=== PATIENT | female | born 1980 | race Caucasian/White ===

== ENCOUNTER 2024-02-21 13:48 | Day surgery (SDC) | payer SELFPAY ==
[2024-02-21] VITALS (10 sets, daily range): BP systolic 107–132; BP diastolic 58–82; BMI 29.9; BMI 29.2
--- NOTE | 2024-02-21 08:42 | ED.GENMED ---
History of Present Illness
General
Chief Complaint: Abdominal Symptoms
Source: patient
Time Seen by Provider: 02/21/24 08:30
Travel History
Have you had any contact with someone who has COVID-19?: No
Do you have any symptoms of coronavirus? Fever > 100 degrees, chills, cough, shortness of breath, sore throat, loss of taste or smell, muscle aches, or headache?: No
History of Present Illness
History of Present Illness:
43-year-old female presents emergency department with her daughter with complaints of pain that started at around 1:30 AM. She felt perfectly well when she went to bed. She had tacos for dinner. She describes the pain as across the upper abdomen
located 'under my boobs', associated with repeated episodes of nonbloody vomiting. She has not vomited since 4 AM but continues to experience waves of nausea. Gradually the pain localized to the right upper quadrant area creating difficulty
sleeping. She describes the pain is constant with exacerbations that are unpredictable. She denies radiation, exacerbating, relieving factors. Patient had a loose stool x 1 on Wednesday, no blood or black stool. She denies urinary urgency, dysuria
but does note mild Rell. She denies fever, chest pain, dyspnea, leg swelling, recent immobilization, recent trauma. Patient denies vaginal bleeding or discharge.
Past History
Past History
ED Past Medical History: None
ED Past Surgical History: None
Social History
Tobacco: Non-smoker
Drug: None
Personal: Single
Employment: Employed
Phy Exam
Physical Exam
Physical Exam:
GENERAL: Alert , in no apparent distress
EYE: pupils equal and reactive
NECK: Supple, no significant adenopathy.
ENT: o/p clr, mmm.
CARDIAC: Regular rate and rhythm .
LUNGS: Clear breath sounds bilaterally, no acute respiratory distress, no wheezes/rales/rhonchi
ABDOMEN: Soft, mild right upper quadrant greater than right mid and lower quadrant tenderness, no r/g, no cvat
NEUROLOGICAL: Alert and oriented, no focal neuro deficits
SKIN: Warm and dry, skin intact.
MUSCULOSKELETAL: No edema, well perfused.
PSYCH: Normal and appropriate interaction.
Course
Orders/Labs/Results
Orders:
Orders
02/21/24 08:42
Electrocardiogram (*1) Urgent
Reason for Study: Abdominal Pain
Cardiac Monitoring- Treatment ONCE
EKG- Treatment ONCE
Ketorolac [Toradol] 15 mg IV NOW STA
Ondansetron Injectable [Zofran] 4 mg IV NOW STA
Test Result ONCE
US Abdomen Complete/Upper Urgent
Comment:
Reason For Exam: ruq pain
02/21/24 08:44
Complete Blood Count/No Diff Urgent
Comprehensive Metabolic Panel Urgent
HCG, Serum Qualitative Screen Urgent
Lipase Urgent
02/21/24 08:50
Urinalysis Reflex To Culture Urgent
Date Specimen was Collected: 02/21/24
Time Specimen was Collected: 08:45
Urine Microscopic Reflex Cult Urgent
02/21/24 11:52
Case Management Consult ONCE
Case Management Consult: Other
02/21/24 12:01
Zosyn 3.375 grams IVPB NOW Piperacillin/Tazo 3.375 Gram [Zosyn] 3.375 gram in 50 ml IV NOW
Abnormal Lab Results
02/21/24 02/21/24
08:44 08:50
WBC 14.1 H 10^3/uL
(4.8-10.8)
MCH 32.0 H pg
(27.0-31.0)
MPV 11.4 H fL
(7.4-10.4)
Glucose 138 H mg/dl
(70-99)
Urine Ketones 3+ A
(Negative)
Ur Occult Blood Reflex 4+ A
(Negative)
Urine Bilirubin 1+ A
(Negative)
Leukocyte Esterase Rfl Trace A
(Negative)
Urine RBC 30-40 A /HPF
(0-2)
Urine Bacteria (Reflex) Few A
(Negative)
02/21/24 08:44
02/21/24 08:44
Vital Signs
Initial and Last Documented VS:
Initial Vital Signs
Temp Pulse BP Pulse Ox
98.1 F 73 110/69 100
02/21/24 07:46 02/21/24 07:46 02/21/24 07:46 02/21/24 07:46
Last Documented Vital Signs
Temp Pulse BP Pulse Ox
98.1 F 73 119/79 97
02/21/24 07:46 02/21/24 07:46 02/21/24 10:00 02/21/24 10:00
*Critical Care Note
Total Time (30-74mins, 75-104mins- exclusive of procedures): Not Applicable
Update Note
Update Note:
Patient presents to the Emergency Department with __abdominal pain nausea vomit
Number and Complexity of Problems Addressed at the Encounter
� Chronic conditions affecting care:
� Acute Exacerbation and/or Progression of Chronic Illness:
� Differential Diagnosis includes: But not limited to pancreatitis, Ama lithiasis, cholecystitis, appendicitis, kidney stone, etc. etc.
Amount and/or Complexity of Data to be Reviewed and Analyzed
� I performed an independent evaluation of and my interpretation is:
EKG: Read by me, no acute ischemia, normal sinus rhythm
CT:
Xrays:
Laboratory Studies: LFTs unremarkable, white blood cell count elevation at 14
Other: UltrasoundBorderline prominent gallbladder containing sludge and tiny stones without wall thickening or pericholecystic fluid. Evaluation for sonographic Schreiber's sign limited by administered pain medication. No biliary
tract dilatation.
� Review of other/old records reveals:
� Clinical information was obtained by an independent historian:
� Prescriptions/Medications Considered but not given:
� Further testing considered but not performed:
Risk of Complications and/or Morbidity or Mortality of Patient Management
� Social determinants of health affecting care:
� Discussion with other providers (PCP, Hospitalists, Consultants, etc):
� Escalation of care including admission/observation vs risk of discharge considered: 11:10 AM patient still with pain 6 out of 10, declines any further pain medications here. Concern regarding a CBC, text sent to general
surgery Dr. Hanson for consultation.
Patient seen by Dr. Hanson, agreement regarding my concerns patient will be admitted with plans for OR tomorrow. Patient describes a gap in her insurance and I have consulted case management as result. IV Zosyn started.
ED Attending Note
-
Portions of this chart may have been created with voice recognition software.� Occasional wrong word or��sound alike� substitutions may have occurred due to the inherent limitations of voice recognition software.
Discharge Plan
Departure
Patient Disposition: Admit
Date of Disposition: 02/21/24
Time of Disposition: 12:02
Admit to: Med/Surg
Admit to doctor: ROSA
Presentation/result/management discussed w/ accepting MD/DO: ROSA
Condition: Good
Discharge Problem:
Acute cholecystitis
Referrals:
Brianna Francis PA-C [Family Provider] -
Interventions
Interventions:
*Risk Screen - Suicide Last Done: 02/21/24 08:50
*General Assessment Last Done: 02/21/24 08:52
*Neglect/Abuse Screening Last Done: 02/21/24 08:50
*ED COVID-19 Vaccine History Last Done: 02/21/24 07:47
HV-Hfowmb-Qtzoeceppf Assessment Last Done: 02/21/24 08:49
Discharge Date and Time
Print Language: SINHALA
[2024-02-21] MEDS: TORADOL 15 MG IV (09:01)
[2024-02-21] MEDS: ZOFRAN 4 MG IV (09:01)
[2024-02-21 09:08] LABS: Hematocrit 40.1 % (37.0-47.0); Hemoglobin 13.9 g/dL (12.0-16.0); Mean Corp Hgb Conc. 34.7 g/dL (33.0-37.0); Mean Corpuscular Volume 92.4 fL (81.0-99.0); Mean Platelet Volume 11.4 fL (7.4-10.4); Platelet Count 188 10^3/uL (130-400); Red Blood Cell Count 4.34 10^6/uL (4.20-5.40); Red Cell Dist. Width 11.7 % (11.5-14.5); White Blood Cell Count 14.1 10^3/uL (4.8-10.8)
[2024-02-21 09:20] LABS: Urine Albumin Trace (Neg - Trace); Urine Bilirubin 1+ (Negative); Urine Character Clear (Clear); Urine Glucose Negative (Negative); Urine Ketone 3+ (Negative); Urine Leukocyte Trace (Negative); Urine Nitrite Negative (Negative); Urine Occult Blood 4+ (Negative); Urine Urobilinogen 1+ (Neg - 1+)
[2024-02-21 09:23] LABS: HCG, Serum Qualitative Screen Negative
[2024-02-21 09:25] LABS: ALT (SGPT) 19 U/L (0-35); AST (SGOT) 26 U/L (14-36); Albumin 4.3 g/dl (3.5-5.0); Alkaline Phosphatase 60 U/L (38-126); Blood Urea Nitrogen 13 mg/dl (7-17); Calcium 9.3 mg/dl (8.4-10.2); Carbon Dioxide 26 mmol/L (22-30); Chloride 104 mmol/L (98-107); Estimated Creatinine Clearance > 125 ml/min; Glucose 138 mg/dl (70-99); Lipase 114 U/L (23-300); Sodium 136 mmol/L (135-145); Total Bilirubin 0.6 mg/dl (0.2-1.3); eGFR > 60.00
[2024-02-21 09:38] LABS: Urine Color Yellow
[2024-02-21 09:50] LABS: Urine Mucus Moderate; Urine Squamous Cell 16-20 /LPF (Few)
[2024-02-21 09:52] LABS: Urine Amorphous Seen
[2024-02-21 09:53] LABS: Urine Red Blood Cell 30-40 /HPF (0-2)
[2024-02-21 09:54] LABS: Urine Bacteria Few (Negative); Urine White Cell 0-2 /HPF (0-5)
--- NOTE | 2024-02-21 12:03 | HPS.HSE ---
Family Physician
-
Family Physician: Brianna Francis PA-C
Chief Complaint
-
Right upper quadrant pain
History of Present Illness
This is a 43-year-old female who presents with right upper quadrant pain that began roughly a 1 AM earlier today. She did have an episode of nonbloody nonbilious emesis around 4 AM and continued to have nausea as well as pain which prompted her to
visit our ER. Here she was tender to palpation in the right upper quadrant. Lab work was significant for a leukocytosis. LFTs were normal limits. Ultrasound demonstrated a thickened gallbladder with sludge and tiny stones as well as wall
thickening and pericholecystic fluid. The patient denies Fever, Chest Pain, Shortness Of Breath, Nausea, Vomiting, changes in urinary and bowel habits, unintentional weight loss, jaundice, icterus, acolic stools.
Medical History
Past Medical History
Past Medical History: Reports None
Past Surgical History: Reports None
Social History
Tobacco: Non-smoker
Alcohol: None
Drug: None
Family History
Family History: Not pertinent
Allergies / Home Medications
Allergies reflects when Allergies were last updated in [facility].
Home Medications with original date entered in [employer]
Allergy/Medication List:
None
Review of Systems
-
A 12 point ROS was completed and negative except as noted: Yes
Physical Exam
Vital Signs
Vital Signs
Temp Pulse BP Pulse Ox
98.1 F 73 119/79 97
02/21/24 07:46 02/21/24 07:46 02/21/24 10:00 02/21/24 10:00
Physical Exam
General: Well Developed
Respiratory: Non Labored Respirations
GI: Soft, Non Distended (Tender to palpation in the right upper quadrant. No Schreiber sign.) and Tender
Laboratory Results
-
02/21/24 08:44
02/21/24 08:44
Laboratory Results
Total Bilirubin 0.6 mg/dl (0.2-1.3) 02/21/24 08:44
AST 26 U/L (14-36) 02/21/24 08:44
ALT 19 U/L (0-35) 02/21/24 08:44
Alkaline Phosphatase 60 U/L (38-126) 02/21/24 08:44
Lipase 114 U/L (23-300) 02/21/24 08:44
Data Reviewed
-
Ultrasound: Image Personally Visualized and interpreted, Report Reviewed by me, Discussed with Physician and Discussed with Patient
Lab Data: Labs Reviewed by me, Discussed with Physician and Discussed with Patient
Impression/Plan
-
This is a 43-year-old female who presents with a 1 day history of sustained right upper quadrant pain. Exam, lab work, imaging all consistent with early acute cholecystitis.
Will plan for a laparoscopic cholecystectomy and cholangiogram. Given or schedule, will likely not go until tomorrow.
Admit for observation
Start antibiotics
Okay for sips of clears
Risks/Benefits/Alternatives, expected postoperative course and possible complications (bleeding, infection, injury to surrounding structures, acute/chronic pain) discussed at length. Patient wishes to proceed with surgery. All questions answered.
Written consent not obtained.
I spent roughly 60 minutes in total for the care of this patient today including direct patient care and counseling, reviewing labs, imaging, coordination of care, as well as documentation.
[2024-02-21] MEDS: ZOSYN 50 IV ×2 (12:21→17:31)
[2024-02-21] MEDS: NORMOSOL-R 1000 IV (15:30)
[2024-02-21] MEDS: TORADOL 10 MG IV ×2 (15:30→19:57)
--- NOTE | 2024-02-21 16:10 | PTCARENOTE ---
Received patient from ED via stretcher. AAOx3, ambulated to bed without assistance. Abdominal tenderness is 4/10- tolerable for patient. Assessed and oriented to room. Call huerta in close reach.
[2024-02-22] VITALS (13 sets, daily range): BP systolic 95–132; BP diastolic 57–76
[2024-02-22] MEDS: ZOSYN 50 IV ×5 (01:21→23:02)
[2024-02-22] MEDS: TORADOL 10 MG IV ×2 (01:22→08:01)
[2024-02-22] MEDS: NORMOSOL-R 1000 IV ×2 (04:19→21:46)
[2024-02-22 04:36] LABS: % Basophils 0.5 % (0-2); % Eosinophils 1.1 % (0-6); % Immature Granulocytes 0.3 % (0-0.5); % Lymphocytes 22.2 % (20.5-51.1); % Monocytes 9.1 % (1.7-9.3); % Neutrophils 66.8 % (42.2-75.2); Absolute Eosinophils 0.1 10^3/uL (0-0.7); Absolute Lymphocytes 1.8 10^3/uL (1.2-3.4); Absolute Monocytes 0.7 10^3/uL (0.1-0.6); Absolute Neutrophils 5.3 10^3/uL (1.4-6.5); Hematocrit 39.7 % (37.0-47.0); Hemoglobin 13.6 g/dL (12.0-16.0); Mean Corp Hgb Conc. 34.3 g/dL (33.0-37.0); Mean Corpuscular Hgb 31.8 pg (27.0-31.0); Mean Corpuscular Volume 92.8 fL (81.0-99.0); Mean Platelet Volume 11.3 fL (7.4-10.4); Nucleated Red Blood Cells % 0 %; Platelet Count 178 10^3/uL (130-400); Red Blood Cell Count 4.28 10^6/uL (4.20-5.40); Red Cell Dist. Width 11.9 % (11.5-14.5); White Blood Cell Count 7.9 10^3/uL (4.8-10.8)
[2024-02-22 05:25] LABS: ALT (SGPT) 17 U/L (0-35); AST (SGOT) 24 U/L (14-36); Albumin 3.7 g/dl (3.5-5.0); Alkaline Phosphatase 48 U/L (38-126); Blood Urea Nitrogen 10 mg/dl (7-17); Calcium 8.7 mg/dl (8.4-10.2); Carbon Dioxide 29 mmol/L (22-30); Chloride 103 mmol/L (98-107); Estimated Creatinine Clearance 102 ml/min; Glucose 106 mg/dl (70-99); Potassium 3.4 mmol/L (3.5-5.1); Sodium 139 mmol/L (135-145); Total Bilirubin 1.4 mg/dl (0.2-1.3); Total Protein 6.3 g/dl (6.3-8.2); eGFR > 60.00
--- NOTE | 2024-02-22 08:22 | W.PN.GS2 ---
Today's Communication / Plan
-
-- Laparoscopic cholecystectomy with IOC
Assessment / Plan
-
Patient is a 43 yo F p/w acute cholecystitis versus severe attack of biliary colic
The natural history and pathophysiology of biliary and stone disease was discussed. Anatomy was reviewed. Options for management including medical management with a low-fat diet versus surgical management with cholecystectomy were considered and
discussed. The pros and cons of both approaches was discussed. Specifically, we discussed persistent and future attacks versus surgical risks. Patient would like to proceed with cholecystectomy.
Plan for a laparoscopic cholecystectomy with possible cholangiogram. The procedure itself, as well as the risks, benefits, and alternatives was discussed. Specifically, we discussed the risks of bleeding, infection, injury to surrounding
structures (bowel, bile ducts), CBD injury, need for open procedure. Typical postprocedural recovery was discussed. All questions answered. Consent signed.
-- Laparoscopic cholecystectomy with IOC
-- NPO, IVF
-- Antibiotics: Zosyn
Subjective Data
-
Date of Service: February 22, 2024
Pain improved, but not completely resolved. No nausea or vomiting. No fevers or chills. No jaundice, pale stools, or tea colored urine. Denies any prior attacks.
Objective Data
-
Intake and Output
02/21/24 02/22/24 02/23/24
06:59 06:59 06:59
Intake Total 120 / 120
Balance 120 / 120
Intake:
Oral fluids 120 / 120
Other:
Number of approximated MODERATE 2
amounts of urine
Vital Signs
Temp Pulse Resp BP Pulse Ox
98.8 F 89 18 120/70 97
02/22/24 08:03 02/22/24 08:03 02/22/24 08:03 02/22/24 08:03 02/22/24 08:03
Lab Results
02/22/24 04:23
02/22/24 04:23
Calcium 8.7 mg/dl (8.4-10.2) 02/22/24 04:23
Total Bilirubin 1.4 mg/dl (0.2-1.3) H 02/22/24 04:23
AST 24 U/L (14-36) 02/22/24 04:23
ALT 17 U/L (0-35) 02/22/24 04:23
Alkaline Phosphatase 48 U/L (38-126) 02/22/24 04:23
Total Protein 6.3 g/dl (6.3-8.2) 02/22/24 04:23
Albumin 3.7 g/dl (3.5-5.0) 02/22/24 04:23
Physical Exam
-
Gen: NAD
Abd: soft, mild tenderness in RUQ, non-distended, non-peritoneal
--- NOTE | 2024-02-22 08:25 | W.SUR.PREOP ---
Pre-Operative Surgical Note
-
I have examined this patient prior to the performance of the scheduled procedure.
The patient's condition is unchanged from the time of the current History and
Physical and the patient is able to undergo the scheduled procedure.
--- NOTE | 2024-02-22 09:41 | CM ---
Consult received; Evelia is in the OR this am for jalyn durant. Assessment to be completed when she returns to the unit.
--- NOTE | 2024-02-22 10:41 | CM ---
CM consult to be completed after jalyn durant today. Evelia is currently uninsured, having a gap in coverage. CM to follow to refer to [facility] after speaking with Evelia.
--- NOTE | 2024-02-22 11:32 | W.IMMPOSTOP ---
Addendum entered and electronically signed by Jayme Leslie MD 02/22/24 11:43:
Dic#[id number]
Original Note:
Surgical Immed Post Op Note
-
Primary Surgeon: Mariama
Assisting Surgeon: None
Pre-op Diagnosis: Acute cholecystitis
Post-op Diagnosis: Acute cholecystitis
Procedure Performed: Laparoscopic cholecystectomy with IOC
Anesthesia Type: General
Specimen / Cultures:
1. Gallbladder
Estimated Blood Loss: 3 cc
Complications: None
Operative Findings:
1. Gangrenous and necrotic GB, bilious ascites, decompression needle
2. Critical view of safety
3. IOC without filling defects, small stones cleared from cystic duct
--- NOTE | 2024-02-22 14:14 | CM ---
Addendum entered by Sana Valera 02/22/24 14:20:
Evelia will return home with spouse and in-laws. She will follow up with [facility] as needed for resumption of medical assistance benefits.
Original Note:
Ana had a copy of her insurance card ([employer]) which she provided to me. I was able to share the information with Nicole with [facility] who will meet with Evelia to determine if she meets the criteria for Medical Assistance. Evelia advised
of same and is hoping to meet Nicole today.
[2024-02-22] MEDS: LOVENOX 40 MG SC (17:14)
[2024-02-23 03:48] VITALS: BP 124/71
[2024-02-23] MEDS: ZOSYN 50 IV (05:30)
[2024-02-23 07:16] LABS: % Basophils 0.5 % (0-2); % Eosinophils 0.5 % (0-6); % Immature Granulocytes 0.4 % (0-0.5); % Lymphocytes 20.8 % (20.5-51.1); % Monocytes 7.4 % (1.7-9.3); % Neutrophils 70.4 % (42.2-75.2); Absolute Lymphocytes 1.6 10^3/uL (1.2-3.4); Absolute Monocytes 0.6 10^3/uL (0.1-0.6); Absolute Neutrophils 5.5 10^3/uL (1.4-6.5); Hematocrit 34.8 % (37.0-47.0); Hemoglobin 12.1 g/dL (12.0-16.0); Mean Corp Hgb Conc. 34.8 g/dL (33.0-37.0); Mean Corpuscular Hgb 31.8 pg (27.0-31.0); Mean Corpuscular Volume 91.6 fL (81.0-99.0); Mean Platelet Volume 11.7 fL (7.4-10.4); Nucleated Red Blood Cells % 0 %; Platelet Count 170 10^3/uL (130-400); Red Cell Dist. Width 11.9 % (11.5-14.5); White Blood Cell Count 7.8 10^3/uL (4.8-10.8)
--- NOTE | 2024-02-23 07:20 | W.PN.GS2 ---
Today's Communication / Plan
-
-- Low fat diet
-- HLIV
-- Zosyn, Augmentin on DC
-- DC today
Assessment / Plan
-
Patient is a 43 yo F p/w acute cholecystitis versus severe attack of biliary colic
POD#1 s/p laparoscopic cholecystectomy with IOC
Recovering well. No postoperative concerns. Stable for discharge. Will plan on 4 days of antibiotics given the gangrenous and necrotic nature of the gallbladder.
-- Low fat diet
-- Pain control: Tylenol, Toradol, Oxycodone
-- HLIV
-- Zosyn, Augmentin on DC
-- Lovenox for DVT
-- DC today
Subjective Data
-
Date of Service: February 23, 2024
Imaging complaints. Pain well-controlled. No nausea or vomiting. No fevers or chills.
Objective Data
-
Intake and Output
02/22/24 02/23/24 02/24/24
06:59 06:59 06:59
Intake Total 120 / 120 2500 / 2500
Balance 120 / 120 2500 / 2500
Intake:
Oral fluids 120 / 120 2400 / 2400
IV piggybacks 100 / 100
Other:
Number of approximated MODERATE 2 3
amounts of urine
Vital Signs
Temp Pulse Resp BP Pulse Ox
98.9 F 75 18 124/71 98
02/23/24 03:48 02/23/24 03:48 02/23/24 03:48 02/23/24 03:48 02/23/24 03:48
Lab Results
02/23/24 06:38
Calcium 8.7 mg/dl (8.4-10.2) 02/22/24 04:23
Total Bilirubin 1.4 mg/dl (0.2-1.3) H 02/22/24 04:23
AST 24 U/L (14-36) 02/22/24 04:23
ALT 17 U/L (0-35) 02/22/24 04:23
Alkaline Phosphatase 48 U/L (38-126) 02/22/24 04:23
Total Protein 6.3 g/dl (6.3-8.2) 02/22/24 04:23
Albumin 3.7 g/dl (3.5-5.0) 02/22/24 04:23
Physical Exam
-
Gen: NAD
Abd: soft, NT/ND, non-peritoneal
--- NOTE | 2024-02-23 07:23 | W.DS.TRANS ---
DC Summary - Boiler Blower
-
Discharge Instructions:
Discharge Diagnosis/Procedures Laparoscopic cholecystectomy with IntraOp
cholangiogram
Diet Low Fat,Regular
Additional Diets If issues with bloating or diarrhea follow a low
-fat diet
Activity No strenuous activity
Additional Activity No heavy lifting (>20 lbs) or strenuous
activities for 2 weeks postoperatively
Driving Restrictions No driving if to sore or taking narcotics
Bathing Restrictions OK to Shower
Wound Care Keep incisions clean and dry. Glue will flake
off in 2 to 3 weeks. Stitches will dissolve.
Instructions:
Stand-Alone Forms:
Changes to Home Medications: No
Discharge Medications:
DC Medications w/original date entered in [employer]
bsnaooa-nlxxnwaicdfai-gjwwexth 250 mg-250 mg-65 mg tablet (Excedrin Migraine) 1 tab PO DAILYPRN PRN headaches 02/21/24
levonorgestrel 0.15 mg-ethinyl estradiol 0.03 mg tablet (Altavera (28)) 1 tab PO HS Hormonal Agent 02/21/24
acetaminophen 325 mg tablet 650 mg (2 x 325 mg) PO Q4HPRN PRN mild pain #1 tab 02/22/24
amoxicillin 875 mg-potassium clavulanate 125 mg tablet 1 tab PO Q12 antibiotic 4 days #8 tabs 02/22/24
ibuprofen 200 mg tablet 400 - 600 mg (2 - 3 x 200 mg) PO Q6HPRN PRN moderate pain #1 tab 02/22/24
oxycodone 5 mg tablet 5 mg PO Q4HPRN PRN breakthrough/severe pain #10 tabs 02/22/24
Home Medication Changes
Pending Results: No
[2024-02-23 07:30] VITALS: BP 118/72
[2024-02-23 08:03] LABS: ALT (SGPT) 19 U/L (0-35); AST (SGOT) 26 U/L (14-36); Albumin 3.2 g/dl (3.5-5.0); Alkaline Phosphatase 49 U/L (38-126); Blood Urea Nitrogen 7 mg/dl (7-17); Calcium 8.2 mg/dl (8.4-10.2); Carbon Dioxide 27 mmol/L (22-30); Chloride 105 mmol/L (98-107); Estimated Creatinine Clearance 115 ml/min; Glucose 94 mg/dl (70-99); Sodium 138 mmol/L (135-145); Total Bilirubin 0.9 mg/dl (0.2-1.3); Total Protein 5.7 g/dl (6.3-8.2); eGFR > 60.00
--- NOTE | 2024-02-23 09:01 | CM ---
Addendum entered by Sana Valera 02/23/24 10:07:
I met with Evelia this AM and she is looking forward to returning home. She advised that she needs to send her daughter's SSI paperwork to Nicole for follow up, and is thankful for the assistance.
Original Note:
Radha is being discharged home this morning. Call placed to Nicole [facility] [phone] to advise of discharge in case follow up is needed regarding loss of insurance. PHILLIP left advising her of discharge today.
[2024-02-23 11:11] VITALS: BP 112/68
[2024-02-23] MEDS: KCL 40 MEQ PO (12:29)
[2024-02-23 13:52] LABS: Potassium 3.5 mmol/L (3.5-5.1)
== END 2024-02-23 14:24 | disposition home or self-care (01) ==
LOC: SDS 13:48
PROVIDERS: Surgery; ATTENDING PHYSICIAN Surgery; EMERGENCY PHYSICIAN Emergency Medicine; FAMILY PHYSICIAN Physician Assistant Medical
DX: K80.00 Calculus of gallbladder with acute cholecystitis without obstruction (principal); K82.A1 Gangrene of gallbladder in cholecystitis
CPT/HCPCS: 47563; 88304; 74300; 76000; 76700; 80053; 81003; 81015; 83690; 84132; 84703; 85025; 85027; 93005; 96374; 96375; 99285

== ENCOUNTER → 2024-03-02 16:56 | Outpatient (REF) | payer SELFPAY ==
[2024-03-02 17:30] LABS: % Basophils 0.5 % (0-2); % Eosinophils 1.6 % (0-6); % Immature Granulocytes 0.3 % (0-0.5); % Lymphocytes 26.6 % (20.5-51.1); % Monocytes 7.8 % (1.7-9.3); % Neutrophils 63.2 % (42.2-75.2); Absolute Eosinophils 0.1 10^3/uL (0-0.7); Absolute Lymphocytes 1.6 10^3/uL (1.2-3.4); Absolute Monocytes 0.5 10^3/uL (0.1-0.6); Absolute Neutrophils 3.9 10^3/uL (1.4-6.5); Hematocrit 40.5 % (37.0-47.0); Mean Corp Hgb Conc. 34.6 g/dL (33.0-37.0); Mean Corpuscular Hgb 31.8 pg (27.0-31.0); Mean Platelet Volume 11.3 fL (7.4-10.4); Nucleated Red Blood Cells % 0 %; Platelet Count 198 10^3/uL (130-400); Red Cell Dist. Width 11.9 % (11.5-14.5); White Blood Cell Count 6.2 10^3/uL (4.8-10.8)
[2024-03-02 17:48] LABS: ALT (SGPT) 39 U/L (0-35); AST (SGOT) 33 U/L (14-36); Albumin 4.4 g/dl (3.5-5.0); Alkaline Phosphatase 65 U/L (38-126); Blood Urea Nitrogen 8 mg/dl (7-17); Calcium 9.9 mg/dl (8.4-10.2); Carbon Dioxide 29 mmol/L (22-30); Chloride 101 mmol/L (98-107); Glucose 95 mg/dl (70-99); Potassium 4.1 mmol/L (3.5-5.1); Sodium 138 mmol/L (135-145); Total Bilirubin 0.9 mg/dl (0.2-1.3); Total Protein 7.1 g/dl (6.3-8.2); eGFR > 60.00
[2024-03-02 18:24] LABS: Lipase 110 U/L (23-300)
== END ==
LOC: REG 16:56
PROVIDERS: ATTENDING PHYSICIAN Surgery; FAMILY PHYSICIAN Physician Assistant Medical
DX: Z90.49 Acquired absence of other specified parts of digestive tract (principal)
CPT/HCPCS: 36415; 80053; 83690; 85025